=== PATIENT | female | born 2000 | race Caucasian/White ===

== ENCOUNTER → 2022-09-10 12:42 | Outpatient (CLI) | payer OTHER, SELFPAY ==
--- NOTE | ~2022-09-10 | US_ITS ---
EXAMINATION: US OB transvaginal DATE: 09/10/2022 13:16 INDICATION: Uncertain gestational dates. TECHNIQUE: Real-time transvaginal obstetric ultrasound. FINDINGS: No prior studies for comparison. The uterus measures 8.2 x 5.1 x 5.7 cm. There is an intrauterine gestational sac, with pole jing ntified. The crown rump length measures 0.99 cm, which correlates with a estimated gestational age o f 7 weeks 1 day. heart tones are identified measuring 139 BPM. There are bilateral ovarian cy sts, largest on the left measuring up to 2.5 cm.. IMPRESSION: 1. SL IUP with an EGA of 7 weeks, 1 days (EDC by current ultrasound of 04/28/2023). Reviewed, dictated and finalized at location B. MOTIVE OBSERVER IMPRESSION: 1. SL IUP with an EGA of 7 weeks, 1 days (EDC by current ultrasound of 04/28/20 23).
== END ==
PROVIDERS: PCP Obstetrics & Gynecology Gynecology; Visit Provider Obstetrics & Gynecology Gynecology
DX: Z36.87 Encounter for antenatal screening for uncertain dates (principal); Z3A.01 Less than 8 weeks gestation of pregnancy
CPT/HCPCS: 76817

== ENCOUNTER → 2022-11-28 08:09 | Outpatient (CLI) | payer OTHER, SELFPAY ==
--- NOTE | ~2022-11-28 | US_ITS ---
EXAMINATION: US OB /maternal detail DATE: 11/28/2022 08:55 INDICATION: survey TECHNIQUE: Multiple obstetric sonographic images performed. FINDINGS: Comparison to 09/10/2022 There is a single living fetus in breech presentation. The placenta is posterior without placenta pr evia. Placental margin to the cervix is 3.4 cm. Cervical length is 2.7 cm. Amniotic fluid volume is s ubjectively normal. cardiac activity and movement is noted with a heart rate of 136 beats per minute. The following anatomy was identified as normal: 4 chamber heart 3 vessel cord cord insertion kidneys urinary bladder stomach spine diaphragm ventricles cisterna magna cerebellum The following biometric data were obtained: BPD: 42mm corresponds to gestational age 18 weeks 4 days. Head circumference: 161 mm corresponds to gestational age 19 weeks 0 days. Abdominal circumference: 135 mm corresponds to gestational age 18 weeks 6 days. Femur length: 29 mm corresponds to gestational age 19 weeks 0 days. Head circumference to abdominal circumference ratio: 1.2 (normal range for expected gestational age i s 1.09-1.26). Estimated weight: 266 grams +/- 40 grams using Hadlock method 76.8%. IMPRESSION: 1: Single living intrauterine with an estimated gestational age of 18weeks 3days by initial ultrasound measurements, with an EDC of 04/28/2023 in breech presentation. 2. Normal survey. Reviewed, dictated and finalized at location B. IMPRESSION: 1: Single living intrauterine with an estimated gestational age of 18 weeks 3days by initial ultrasound measurements, with an EDC of 04/28/2023 in br eech presentation. 2. Normal survey.
== END ==
PROVIDERS: PCP Advanced Practice Midwife; Visit Provider Advanced Practice Midwife
DX: Z36.9 Encounter for antenatal screening, unspecified (principal); Z3A.18 18 weeks gestation of pregnancy
CPT/HCPCS: 76805

== ENCOUNTER 2022-12-21 09:09 | Emergency (ER) | payer OTHER, SELFPAY ==
--- NOTE | 2022-12-21 09:18 | ED.EYEPROB ---
HPI - Eye Problem General Chief complaint: Eye Problems Stated complaint: pink eye Time Seen by Provider: 12/21/22 09:51 Source: patient and RN notes reviewed Mode of arrival: ambulatory Limitations: no limitations History of Present Illness HPI Narrative: 22-year-old female who is 20 weeks presents concern for eye irritation, redness, burning, pain. She reports symptoms started 2 days ago, she went to another urgent care yesterday, they diagnosed her with pink eye, gave her tetracycline drops, she has been using them every 4 hours, yesterday and throughout the night. Reports the swelling and redness have worsened, she now has swelling under her eye. She reports her eye was crusted shut when she woke up this morning. She denies vision changes. Reports watery drainage MD chief complaint: eye redness Related Data Home Medications Medication Instructions Recorded Confirmed lansoprazole 30 mg capsule,delayed 30 mg PO DAILY 12/21/22 12/21/22 release Allergies Allergy/AdvReac Type Severity Reaction Status Date / Time No Known Allergies Allergy Verified 12/21/22 09:55 Review of Systems Review of Systems: CONSTITUTIONAL: Denies malaise, chills, sweats, or fever. EYES: Denies visual changes. Reports left pain, eye redness, irritation, discharge. ENT: Denies rhinorrhea, congestion, sinus pain, otalgia or sore throat. SKIN: Denies rash or itching. NEUROLOGIC: Denies numbness, weakness, or headache. PSYCHIATRIC: Denies anxiety or depression. All systems reviewed & are unremarkable except as noted in HPI and below PMFSH Comments At time of signature, agree with nursing past medical, surgical, social and family history. There is no relevant family history pertinent to the presenting complaint Exam Narrative: GENERAL: Well-appearing, well-nourished, and in no acute distress. HEAD: Normocephalic, atraumatic. EYES: PERRLA and EOMI. No nystagmus. Left sclera and conjunctivae injected with mild conjunctival edema, lower and upper lid edema and erythema, extending slightly below the lower lid; no tenderness to the upper or lower lid or surrounding the orbit. No corneal abrasion or foreign body noted upon Wood's lamp exam, see note. Right conjunctiva, sclera, upper and lower eyelid unremarkable. ENT: Nares clear, turbinates pink, no rhinorrhea or epistaxis. Mucous membranes moist. TM pearly bryant with sharp light reflex bilaterally; no tragal tenderness. NECK: Supple. CHEST: No respiratory distress. Speaks in full sentences. HEART: Regular rate and rhythm. SKIN: Warm, dry, no visible rash. NEURO: Alert and oriented x3. PSYCH: Normal mood and affect Course Course Emergency Course: Patient is aware of diagnosis, understands and agrees to treatment plan. Anticipatory guidance given. Patient agrees to follow-up as directed and is aware of reasons to seek care at the emergency department. Portions of this record may have been created with voice recognition software Level of Care: Express Care Visit Vital Signs Vital signs: Reviewed. Procedures Other Procedure Procedure 1: Other Procedure: Tetracaine 1 gtt instilled in left eye, fluorescein stain applied. No corneal abrasion noted upon harry lamp. Eye washed with NS. No foreign bodies or Viviana sign noted. MDM - Eye Problem MDM Narrative Medical decision making narrative: Consideration of the following conditions may be warranted for the presenting problem, they are not final diagnoses: Keratitis, bacterial conjunctivitis, allergic conjunctivitis, viral conjunctivitis, foreign body, blepharitis, chalazion, hordeolum, corneal abrasion, preseptal cellulitis, orbital cellulitis. No evidence of proptosis, ophthalmoplegia, vision loss, pain with eye movement. Exam findings show no acute concerns or changes; patient is non-toxic appearing and is in no distress. Patient is appropriate for outpatient treatment and follow-up. Differential Diagno
[2022-12-21 09:20] VITALS: BP 125/87; PULSE 105; RESP 16; TEMP 36.8; O2SAT 100
== END 2022-12-21 10:35 | disposition home or self-care (01) ==
PROVIDERS: Emergency Provider Nurse Practitioner
DX: O99.891 Other specified diseases and conditions complicating pregnancy (principal); Z3A.20 20 weeks gestation of pregnancy; H57.89 Other specified disorders of eye and adnexa; H02.846 Edema of left eye, unspecified eyelid
CPT/HCPCS: 99213; A9270; G0463

== ENCOUNTER → 2023-03-10 10:51 | Outpatient (CLI) | payer OTHER, SELFPAY ==
--- NOTE | ~2023-03-10 | US_ITS ---
EXAMINATION: US OB follow up DATE: 03/10/2023 11:13 INDICATION: Expected size greater than expected for estimated gestational age TECHNIQUE: Real-time ultrasound of the pelvis was performed. The interpreting radiologist was not pre sent for the study. COMPARISON: None. FINDINGS: There is a single living fetus in breech presentation. The placenta is posterior and not low-lying. The cephalad and caudal margins of the cervix are not clearly delineated precluding accurate assessme nt for length. heart rate is 141 beats per minute (bpm). The amniotic fluid index is 9.3 cm, w hich is normal (5th%-95%: 8.3-24.5 cm at 33 weeks estimated gestational age). The following biometric data were obtained: BPD: 8.5 cm -> 34 weeks 2 days Head circumference: 32.3 cm -> 36 weeks 4 days Abdominal circumference: 31.6 cm -> 35 weeks 3 days Femur length: 6.4 cm -> 33 weeks 0 days These measurements are concordant. Head circumference to abdominal circumference ratio: 1.02 (normal range 0.93-1.11). Estimated weight: 2521 g (+/-) 378 g or 5 lbs. 9 oz. (+/-) 13 oz. IMPRESSION: 1. Single living fetus in breech presentation with heart rate of 141 bpm. 2. Normal amniotic fluid index measuring 9.3 cm. 3. Estimated weight is 90th percentile by Hadlock criteria when 04/28/2023 is used as the estim ated date of delivery (MAYKEL). Please correlate with clinical information or earlier ultrasounds for mo st accurate MAYKEL. Reviewed, dictated and finalized at location A. IMPRESSION: 1. Single living fetus in breech presentation with heart rate of 141 bpm. 2. Normal amniotic fluid index measuring 9.3 cm. 3. Estimated weight is 90th percentile by Hadlock criteria when 3 is used as the estimated date of delivery (MAYKEL). Please correlate with clinic al information or earlier ultrasounds for most accurate MAYKEL.
== END ==
PROVIDERS: PCP Obstetrics & Gynecology Gynecology; Visit Provider Obstetrics & Gynecology Gynecology
DX: O36.63X0 Maternal care for excessive fetal growth, third trimester, not applicable or unspecified (principal); Z3A.00 Weeks of gestation of pregnancy not specified
CPT/HCPCS: 76816

== ENCOUNTER 2023-03-15 08:02 | Emergency (ER) | payer OTHER, SELFPAY ==
[2023-03-15 08:08] VITALS: BP 114/82; PULSE 105; RESP 16; TEMP 36.7; O2SAT 100
--- NOTE | 2023-03-15 08:17 | ED.URI ---
HPI - URI/Sore Throat General Chief Complaint: Upper Respiratory Infection Stated Complaint: Sore Throat/Ear Pain History of Present Illness HPI Narrative: patient presents with sore throat and ear pain. Patient denies any trouble swallowing no drooling. Patient states she gets strep to often and also complains of right ear pain. Patient is 34 weeks with no -related issues. No abdominal pain no pelvic pain no vaginal discharge no vaginal bleeding and no concern for STIs. Patient reports normal movement. Related Data Home Medications Medication Instructions Recorded Confirmed lansoprazole 30 mg capsule,delayed 30 mg PO DAILY 12/21/22 03/15/23 release aspirin 81 mg tablet,delayed 81 mg PO DAILY 03/15/23 03/15/23 release (Adult Low Dose Aspirin) cholecalciferol (vitamin D3) 125 125 mcg PO DAILY 03/15/23 03/15/23 mcg (5,000 unit) tablet (Vitamin D3) ferrous sulfate 324 mg (65 mg 324 mg PO DAILY 03/15/23 03/15/23 iron) tablet,delayed release vitamin-ferrous fumarate 1 tablet PO DAILY 03/15/23 03/15/23 28 mg iron-folic acid 800 mcg tablet ( Tablet) Allergies Allergy/AdvReac Type Severity Reaction Status Date / Time No Known Allergies Allergy Verified 03/15/23 08:18 Review of Systems Review of Systems: CONSTITUTIONAL: Denies chills, or sweats. Reports fever and generalized body aches EYES: Denies visual changes, redness, or discharge. ENT: Denies otalgia. Reports nasal congestion runny nose and sore throat CARDIOVASCULAR: Denies chest pain, palpitations, or edema. RESPIRATORY: Denies dyspnea. Reports occasional cough GASTROINTESTINAL: Denies abdominal pain, nausea, vomiting, or diarrhea. GENITOURINARY: Denies dysuria or hematuria. SKIN: Denies rash or itching. MUSCULOSKELETAL: Denies back pain, joint pain, or myalgia. Reports generalized body aches NEUROLOGIC: Denies headache, numbness, or weakness. PSYCHIATRIC: Denies anxiety or depression. PMFSH Comments At time of signature, agree with nursing past medical, surgical, social and family history. There is no relevant family history pertinent to the presenting complaint Exam Narrative: The patient is a well-developed, well-nourished in no acute distress. SKIN: Skin is warm and dry without erythema, swelling or exudate. There is good turgor. No tenting. HEAD: Atraumatic. Normocephalic. No temporal or scalp tenderness. EYES: Moist and bright. Sclera and conjunctivae normal. No discharge. PERRLA. Extraocular motions intact. Gross visual acuity intact. EARS: Pinna is normal shape and contour. Clear external auditory canals. TM pearly buenrostro with good cone of light, no erythema or suppuration. Bilateral cerumen noted no gross hearing deficit. NOSE: pink, moist mucosa with good air movement. Clear rhinorrhea without nasal flaring. Septum midline. Mouth: moist mucous membranes. THROAT; mild erythema noted to posterior oropharynx with moderate postnasal drainage. Without exudate or ulceration.. Uvula midline. Normal movement of soft palate. NECK: Supple and nontender with full range of motion without discomfort. No meningeal signs. LUNGS: Equal and bilateral breath sounds without wheezes, rales or rhonchi. CHEST: The chest wall is without retractions or use of accessory muscles. HEART: Has a regular rate and rhythm without murmur, gallops, click or rub. ABDOMEN: Soft, nontender with positive active bowel sounds. No rebound tenderness. EXTREMITIES: Without cyanosis, clubbing or edema. Equal 2+ distal pulses and 2 second capillary refill noted. NEUROLOGIC: alert, active, . The patient moves all extremities with normal muscle strength. Normal muscle tone is noted. Normal coordination is noted. NO focal neurological findings noted. Course Course Level of Care: Express Care Visit Vital Signs Vital signs: Vital Signs Temperature 36.7 C 03/15/23 08:08 Pulse Rate 105 H 03/15/23 08:08 Respiratory Rate
== END 2023-03-15 08:30 | disposition home or self-care (01) ==
PROVIDERS: Emergency Provider Nurse Practitioner Family
DX: O99.513 Diseases of the respiratory system complicating pregnancy, third trimester (principal); Z3A.34 34 weeks gestation of pregnancy; J02.0 Streptococcal pharyngitis
CPT/HCPCS: 87880; 99213; G0463

== ENCOUNTER 2023-04-25 10:46 | Outpatient (CLI) | payer OTHER, SELFPAY ==
[2023-04-25 11:14] LABS: Basophils Absolute Auto 0.1 K/mm3 (0.0-0.1); Basophils Percent Auto 0.3 % (0.2-1.2); Eosinophils Absolute Auto 0.1 K/mm3 (0-0.3); Eosinophils Percent Auto 0.6 % (0-4.4); Hematocrit 39.3 % (37.0-47.0); Hemoglobin 12.3 g/dL (12.0-15.0); Immature Granulocyte Absolute 0.26 K/mm3 (0.00-0.031); Immature Granulocyte Percent A 1.7 % (0-0.5); Lymphocytes Absolute Auto 2.67 K/mm3 (0.9-3.2); Lymphocytes Percent Auto 17.2 % (18.3-44.2); Mean Corpuscular HGB Conc 31.3 g/dl (32-36); Mean Corpuscular Hemoglobin 26.1 pg (26-34); Mean Corpuscular Volume 83.4 fl (80-100); Mean Platelet Volume 11.2 fl (7.4-10.4); Monocytes Percent Auto 6.5 % (2.6-8.5); Neutrophils Absolute Auto 11.4 K/mm3 (1.3-6.7); Neutrophils Percent Auto 73.7 % (45.5-73.1); Platelet Count Result 295 k/mm3 (150-375); Red Blood Count 4.71 M/mm3 (4.2-5.4); Red Cell Distribution Width 17.2 % (11.5-14.5); White Blood Count 15.5 K/mm3 (4.5-10.0)
[2023-04-26 21:58] LABS: Rapid Plasma Reagin Non-Reactive (NonReactive)
== END 2023-04-25 10:47 | disposition home or self-care (01) ==
LOC: ANHOBOP 10:49
PROVIDERS: Visit Provider Obstetrics & Gynecology Gynecology
DX: Z34.90 Encounter for supervision of normal pregnancy, unspecified, unspecified trimester (principal); Z3A.00 Weeks of gestation of pregnancy not specified
CPT/HCPCS: 36415; 85025; 86592; 86850; 86900; 86901

== ENCOUNTER 2023-04-26 11:46 | Outpatient (RCR) | payer OTHER, SELFPAY ==
[2023-04-26 13:00] VITALS: BP 118/81; PULSE 82
== END 2023-04-27 07:16 | disposition home or self-care (01) ==
LOC: ANHOBOP 11:46
PROVIDERS: Visit Provider Obstetrics & Gynecology Gynecology
DX: O26.893 Other specified pregnancy related conditions, third trimester (principal); R03.0 Elevated blood-pressure reading, without diagnosis of hypertension; Z3A.39 39 weeks gestation of pregnancy
CPT/HCPCS: 59025

== ENCOUNTER 2023-04-27 09:45 | Inpatient (IN) | payer OTHER, SELFPAY ==
[2023-04-27] VITALS (62 sets, daily range): BP systolic 94–134; BP diastolic 66–87; PULSE 75–105; RESP 14–18; TEMP 36.4–36.7; O2SAT 95–100; BMI 39.2
--- NOTE | 2023-04-27 07:37 | WPDHPUPDATE1 ---
History and Physical Update Update Date/Time: 04/27/23 07:37 History and Physical has been reviewed, including an updated exam of the patient. There are NO changes in the patient's condition. Risks, benefits, and alternatives have been discussed and questions answered. Patient agrees to proceed with procedure.
--- NOTE | 2023-04-27 07:37 | PM.IMHP ---
H&P: HPI History of Present Illness Date/Time: 04/27/23 07:37 Chief Complaint: Breech presentation Narrative: The patient is a 23-year-old 1 being admitted at 39 and 6/7 weeks secondary to breech presentation for primary section. Risks the delivery were reviewed patient declined external cephalic version. has been otherwise uncomplicated. labs A positive, rubella nonimmune, RPR negative, hepatitis-B surface antigen negative, HIV negative, group B strep negative. 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 Bedside u/s done and still breech. Review of Systems Review of Systems: not repeated day of surgery; patient states no changes in status [facility] Past Medical History Medical History (Updated 04/27/23 @ 07:42 by Patricia Leiva MD) GERD (gastroesophageal reflux disease) Family History Family History (Updated 04/03/23 @ 12:22 by Mariely Schulz RN) Father Hypertension Diabetes mellitus Mother Hypertension Rheumatoid arthritis Grandparent Ovarian cancer Grandparent Acute myocardial infarction Social History Social History Smoking status: Never smoker Second hand tobacco smoke exposure: No Substance use: never Lack of Transportation: No Lack of Food: Never True Current Housing: I Have Housing Concerned About Future Housing: No Difficulty Paying Gas/Electric Bills: No Difficulty Paying for Meds: No Currently Unemployed: No Education: Bachelor's Degree Difficulty w/ Childcare or Family Care: No Spiritual care concerns: No Meds Home Medications and Allergies Home Medications Medication Instructions Recorded Confirmed Type lansoprazole 30 mg capsule,delayed 30 mg PO DAILY 12/21/22 04/03/23 History release aspirin 81 mg tablet,delayed 81 mg PO DAILY 03/15/23 04/03/23 History release (Adult Low Dose Aspirin) cholecalciferol (vitamin D3) 125 125 mcg PO DAILY 03/15/23 04/03/23 History mcg (5,000 unit) tablet (Vitamin D3) ferrous sulfate 324 mg (65 mg 324 mg PO DAILY 03/15/23 04/03/23 History iron) tablet,delayed release vitamin-ferrous fumarate 1 tablet PO DAILY 03/15/23 04/03/23 History 28 mg iron-folic acid 800 mcg tablet ( Tablet) Allergies Allergy/AdvReac Type Severity Reaction Status Date / Time No Known Allergies Allergy Verified 04/03/23 12:19 Exam Const: General: healthy appearing, alert and obese (BMI pre 33.7; current weight 252 lb) Orientation/consciousness: patient oriented x3 Resp: Effort & Inspection: normal respiratory effort GI: GI Palp: Yes Soft to palpation, No Tenderness to palpation present (GI) and Yes Other GI palpation findings present (Fundal height of 40cm) : External Female Exam: normal external appearance Speculum Exam - Vagina: normal appearance of the vagina and normal vaginal discharge Speculum Exam - Cervix: normal appearance of the cervix Bimanual exam- vagina & uterus: consistency normal Bimanual Exam- Adnexa, other: normal adnexae and No adnexal tenderness Neuro: General: patient oriented x3 Assessment and Plan Assessment and plan (1) 39 weeks gestation of : Code(s): Z3A.39 - 39 weeks gestation of Status: Acute (2) Breech presentation: Code(s): O32.1XX0 - Maternal care for breech presentation, not applicable or unspecified Status: Acute Assessment and Plan: Plan is to proceed with primary section
[2023-04-27] MEDS: LACTATED RINGERS 1,000 ML 125 ML IV CONT ×2 (10:34→11:08)
[2023-04-27] MEDS: KETOROLAC 30 MG/ML VIAL (*BKC) 15 MG IV PUSH (12:43)
--- NOTE | 2023-04-27 12:49 | P.OP_ITS ---
Procedure Note - Detailed Date of Procedure 04/27/23 Pre-op Diagnosis Intrauterine at 39 and 6 7th weeks breech presentation Post-op Diagnosis Same Procedure Performed primary low-transverse section Surgeon Patricia Leiva MD Anesthesia Spinal Findings male in the snow breech presentation with 8 [id number] and 9 [id number] Apgars weighing 9lb 4oz normal-appearing tubes, ovaries, uterus Description of Procedure The patient was taken to the operating room and placed under anesthesia in the dorsal supine position with a leftward tilt. Once anesthesia was deemed adequate, she is prepped and draped in the usual sterile fashion. A Pfannenstiel skin incision was made with a scalpel and carried down to the underlying layer of fascia which was nicked in the midline. The incision was extended laterally using Dumont scissors. Bleeding vessels in the subcutaneous tissue are cauterize for hemostasis. Ochsner was used to tent the fascia which was then dissected off using sharp and blunt dissection. The rectus muscles were in the midline and the peritoneum tented and entered with Metzenbaum scissors. The incision was extended with blunt traction. The bladder blade is placed. The vesicouterine peritoneum was tented with a Peon and entered with Metzenbaum scissors. The incision was extended laterally and the bladder flap created digitally. The bladder blade is replaced. The lower uterine segment was incised in a transverse fashion with the scalpel and amniotic fluid clear is noted. The incision was extended laterally using blunt traction. The infant's hips are grasped and delivered as the foundation assistant applied fundal pressure. The infant was delivered to the scapula and then rotated and right arm delivered spontaneously. The infant was rotated and the left arm delivered while splinted. The infant was extended on the abdomen and the head delivered while guiding the vertex. The cord was clamped and cut and the infant handed to the awaiting OB nurse. The placenta is removed using manual traction after cord gases and cord blood were taken. The uterus is cleared of all clots and debris and exteriorized. The uterine incision was closed using 0 Monocryl in a running locked fashion and the same suture to imbricate. Good hemostasis is noted. The cul-de-sac is irrigated and the uterus returned to the abdomen. The gutters are irrigated. The incision was again inspected noted to be hemostatic. The fascia was closed using 0 Vicryl in a running fashion. Subcutaneous tissues are irrigated and noted to be hemostatic. Skin is closed using 4-0 Vicryl in a subcuticular fashion. Dermaflex was placed over the incision. Sponge, needle, and instrument counts are correct per the OR staff. Patient was taken to recovery room in stable condition. Estimated Blood Loss 275 Drains Yes ( Gabriel catheter) Packing No Pathology None sent Complications No immediate complications Condition Stable Disposition Floor
--- NOTE | 2023-04-27 12:53 | PM.OBDSVD ---
DS: Admitting Diagnosis Discharge Date 04/29/23 Admitting Diagnosis intrauterine at 39 and 6 7th weeks breech presentation DS: Discharge Diagnosis Discharge Diagnosis (1) Delivery by section using transverse incision of lower segment of uterus: Code(s): O82 - Encounter for delivery without indication Status: Acute OB - DS: Summary OB Procedures : Ultrasound OB Procedures Intrapartum: low cervical, transverse OB Procedures: : None Peripartum Data Delivery Method: Section Procedures: Procedures Operation Date: 04/27/23 12:00 Actual Procedure Side Surgeon p Section Patricia Leiva MD complications: none Status at Discharge Functional status at discharge: independent ambulation Overall status at discharge: patient is progressing back to baseline Time Spent with Patient Time attestation: Total time spent providing and/or coordinating discharge services: Discharge Plan Discharge Attending physician on discharge: Patricia Leiva Discharging Clinician: Patricia Leiva Anticipated Discharge Date/Time: 04/30/23 12:55 Patient Disposition: Home, Self-Care Activity: may shower, may drive after 2 weeks and pelvic rest Diet: regular Wound Care Instructions: incision open to air Patient Instructions: Antibiotic Form Stand Alone Forms: General Discharge Information Follow-up/Referrals: Patricia Leiva MD [Physician] - 1 Week ( and 6 week) Discharge Medications: New hydrocodone-acetaminophen 5-325 mg tablet 1 tablet PO Q4H PRN (Reason: pain) Qty: 15 0RF desogestrel-ethinyl estradiol [Isibloom] 0.15-0.03 mg tablet 1 tablet PO DAILY Qty: 84 1RF Rx Instructions: start in 3 weeks on Thursday Continued cholecalciferol (vitamin D3) [Vitamin D3] 125 mcg (5,000 unit) Tablet 125 mcg PO DAILY vit-iron fum-folic ac [ Tablet] 28 mg iron- 800 mcg Tablet 1 tablet PO DAILY ferrous sulfate 324 mg (65 mg iron) Tablet,Delayed Release (Dr/Ec) 324 mg PO DAILY lansoprazole 30 mg capsule,delayed release(DR/EC) 30 mg PO DAILY cetirizine 10 mg Tablet 10 mg PO DAILY Date of admission: 04/27/23 09:45 Primary Care Provider: PHYSICIAN NOT ON STAFF,NONSTAFF Admitting Provider: Patricia Leiva Attending physician on admission: Patricia Leiva Condition: Stable
[2023-04-27] MEDS: ceFAZolin 2 GM/D5W 50 ML 2 GM/50 ML BAG IVPB (13:09)
[2023-04-27] MEDS: OXYTOCIN 30 UNITS/NS 500 ML 30 UNITS/500 ML BAG 125 UNITS IV CONT (13:32)
--- NOTE | 2023-04-27 15:05 | OBPPTRN ---
Patient transferred to post room # 290 via stretcher accompanied by spouse and . PT introductions made and plan of care discussed per post op c section, pain management, bottle feeding, daily care activities. PT and suupport person present and recipients of instructions. No barriers to learning identified at this time. PT received such instructions via one to one discussion, mom baby care guide and demonstrations. Oriented to unit, room, information board, rooming in, admission packet and security measures. Patient verbalizes understanding.
[2023-04-27] MEDS: LIDOCAINE 5% PATCH 1 PATCH TRANSDERM (16:07)
[2023-04-27] MEDS: KETOROLAC 30 MG/ML VIAL (*BKC) IV PUSH (18:40)
[2023-04-27] MEDS: DEXTROSE 5%/0.45% SOD CHL 1,000 ML 125 ML IV CONT (18:40)
[2023-04-27] MEDS: HYDROcodone/acetaminophen (*CRX) 5-325 MG TABLET 1 TAB PO (22:50)
[2023-04-28] MEDS: HYDROcodone/acetaminophen (*CRX) 5-325 MG TABLET 1 TAB PO ×5 (02:57→21:24)
[2023-04-28 04:10] VITALS: BP 121/70; PULSE 95; RESP 18; TEMP 36.6; O2SAT 100
--- NOTE | 2023-04-28 07:56 | PM.OBPNVD ---
OB - PN: Subj Subjective Date/time seen: 04/28/23 07:56 Patient comments: no complaints and pain well controlled baby status: doing well OB - PN: Obj Data Labs 04/28/23 07:35 OB - PN A/P Plan day: 1 Plan: routine care Time Spent With Patient Time: Total time spent is greater than 50% in coordination of care (as documented) at patient's floor/unit and/or counseling patient: Exam Narrative: inc c/d/i : Bimanual exam- vagina & uterus: other (Uterus firm, nt @U)
[2023-04-28 07:58] LABS: Basophils Percent Auto 0.2 % (0.2-1.2); Eosinophils Absolute Auto 0.1 K/mm3 (0-0.3); Eosinophils Percent Auto 0.4 % (0-4.4); Hematocrit 35.9 % (37.0-47.0); Hemoglobin 11.1 g/dL (12.0-15.0); Immature Granulocyte Absolute 0.22 K/mm3 (0.00-0.031); Immature Granulocyte Percent A 1.3 % (0-0.5); Lymphocytes Absolute Auto 3.12 K/mm3 (0.9-3.2); Lymphocytes Percent Auto 18.7 % (18.3-44.2); Mean Corpuscular HGB Conc 30.9 g/dl (32-36); Mean Corpuscular Hemoglobin 25.8 pg (26-34); Mean Corpuscular Volume 83.3 fl (80-100); Mean Platelet Volume 11.3 fl (7.4-10.4); Monocytes Absolute Auto 1.4 K/mm3 (0.1-0.6); Monocytes Percent Auto 8.5 % (2.6-8.5); Neutrophils Absolute Auto 11.8 K/mm3 (1.3-6.7); Neutrophils Percent Auto 70.9 % (45.5-73.1); Platelet Count Result 266 k/mm3 (150-375); Red Blood Count 4.31 M/mm3 (4.2-5.4); Red Cell Distribution Width 17.3 % (11.5-14.5); White Blood Count 16.7 K/mm3 (4.5-10.0)
[2023-04-28] MEDS: IBUPROFEN 600 MG TABLET PO ×3 (08:20→21:23)
[2023-04-28] MEDS: DOCUSATE SODIUM 100 MG CAPSULE PO ×2 (08:20→16:12)
[2023-04-28] MEDS: MULTIVIT/MIN/PREN/FOL AC/IRON TABLET 1 TAB PO (08:20)
[2023-04-28 08:25] VITALS: BP 118/75; PULSE 93; RESP 16; TEMP 36.5; O2SAT 98
--- NOTE | 2023-04-28 09:02 | WPDANLDPN2 ---
Anes-Prog Note L&D Date/Time: 04/28/23 09:02 Comfortable throughout: section Neuraxial method: spinal Epidural/Spinal procedure site: clean & non-tender Neuro status: Neuro function grossly intact. Cardiovascular status: normal Respiratory status: normal Airway patency: baseline Mental status: baseline Post-Op hydration status: normal Vital Signs: Last Vital Signs Temp 36.6 C 04/28/23 04:10 Pulse 95 04/28/23 04:10 Resp 18 04/28/23 04:10 BP 121/70 04/28/23 04:10 Pulse Ox 100 04/28/23 04:10 O2 Del Method Room Air 04/28/23 04:10 Pain score (VAS): 3/10 I/O: Intake & Output 04/27/23 04/28/23 04/28/23 23:59 07:59 15:59 Intake Total 410 3000 Output Total 150 2650 Balance 260 350 Post-procedural complaints: none Patient feedback: Patient satisfied with anesthetic care.
--- NOTE | 2023-04-28 09:03 | WPDANLDNPN2 ---
Anes-Prog Note L&D-Neuraxial Date/Time: 04/28/23 09:03 Neuraxial medications: intrathecal PF morphine Opiod-related complaints: none Patient feedback: Patient satisfied with post-operative pain management.
[2023-04-28 12:57] VITALS: BP 110/76; PULSE 96; RESP 16; TEMP 36.5; O2SAT 98
[2023-04-28 20:00] VITALS: BP 113/76; PULSE 84; RESP 18; TEMP 36.3
[2023-04-28] MEDS: LIDOCAINE 5% PATCH 1 PATCH TRANSDERM (21:23)
[2023-04-29] MEDS: IBUPROFEN 600 MG TABLET PO (04:30)
[2023-04-29] MEDS: HYDROcodone/acetaminophen (*CRX) 5-325 MG TABLET 1 TAB PO ×2 (04:30→08:59)
--- NOTE | 2023-04-29 06:41 | PM.OBPNVD ---
OB - PN: Subj Subjective Date/time seen: 04/29/23 06:41 Patient comments: no complaints and pain well controlled baby status: doing well OB - PN: Obj Data Labs 04/28/23 07:35 Labs: Laboratory Results - last 24 hr 04/28/23 07:35 WBC 16.7 H RBC 4.31 Hgb 11.1 L Hct 35.9 L MCV 83.3 MCH 25.8 L MCHC 30.9 L RDW 17.3 H Plt Count 266 MPV 11.3 H Immature Gran % (Auto) 1.3 H Neut % (Auto) 70.9 Lymph % (Auto) 18.7 [place] % (Auto) 8.5 Eos % (Auto) 0.4 Baso % (Auto) 0.2 Lymph # (Auto) 3.12 [place] # (Auto) 1.4 H Eos # (Auto) 0.1 Baso # (Auto) 0.0 Abs Immat Gran (auto) 0.22 H Absolute Neuts (auto) 11.8 H Absolute Nucleated RBC 0.0 Nucleated RBC % 0.0 OB - PN A/P Plan day: 2 Plan: routine care, discharge home and other (plans [place] for bc) Time Spent With Patient Time: Total time spent is greater than 50% in coordination of care (as documented) at patient's floor/unit and/or counseling patient: Exam Narrative: inc c/d/i : Bimanual exam- vagina & uterus: other (Uterus firm, nt @U)
[2023-04-29 08:20] VITALS: BP 111/74; PULSE 88; RESP 16; TEMP 36.6; O2SAT 100
[2023-04-29] MEDS: MULTIVIT/MIN/PREN/FOL AC/IRON TABLET 1 TAB PO (08:59)
[2023-04-29] MEDS: DOCUSATE SODIUM 100 MG CAPSULE PO (08:59)
[2023-04-29] MEDS: MEASLES,MUMPS,RUBELLA VACCINE 0.5 ML VIAL SUB-Q (09:00)
[2023-05-01 11:19] VITALS: BP 126/85; PULSE 86; RESP 18; TEMP 37.5; O2SAT 99
== END 2023-04-29 13:10 | disposition home or self-care (01) | DRG 788 ==
LOC: ANHLDR 12:55 → ANHOB2 15:10
PROVIDERS: Admitting Provider Obstetrics & Gynecology Gynecology; Visit Provider Obstetrics & Gynecology Gynecology
PROC: 10D00Z1 Extraction of Products of Conception, Low, Open Approach (ICD-10-PCS; CPT 59514; principal; 2023-04-27 12:00)
DX: O32.1XX0 Maternal care for breech presentation, not applicable or unspecified (principal); Z37.0 Single live birth; Z3A.39 39 weeks gestation of pregnancy
CPT/HCPCS: 36415; 59025; 85025; 86592; 86850; 86900; 86901; 90710; A9270; J0690; J1885; J2274; J2371; J2405; J2590; J7120

== ENCOUNTER 2023-05-18 08:01 | Emergency (ER) | payer OTHER, SELFPAY ==
[2023-05-18 08:08] VITALS: BP 151/100; PULSE 96; RESP 20; TEMP 36.8; O2SAT 99
--- NOTE | 2023-05-18 08:10 | ED.URI ---
HPI - URI/Sore Throat General Chief Complaint: Upper Respiratory Infection Stated Complaint: sore throat History of Present Illness HPI Narrative: 23 y/o female presented for c/o sore throat, onset one week ago. She was seen the day after symptom onset at , tested negative for strep. Patient then contacted pcp who advised ibuprofen and Tylenol, and Rx steroid. Pt reports no improvement. Also doign saltwater gargles, lozenges, soft foods without relief. Now with left ear pain. Denies headache, nausea, vomiting, fevers or chills. Hx tonsillitis, looking for ENT. Last strep infection 02/2023. Pt is 3 weeks post , not . Related Data Home Medications Medication Instructions Recorded Confirmed lansoprazole 30 mg capsule,delayed 30 mg PO DAILY 12/21/22 05/18/23 release cholecalciferol (vitamin D3) 125 125 mcg PO DAILY 03/15/23 05/18/23 mcg (5,000 unit) tablet (Vitamin D3) Allergies Allergy/AdvReac Type Severity Reaction Status Date / Time No Known Allergies Allergy Verified 05/18/23 08:15 Review of Systems Review of Systems: CONSTITUTIONAL: Denies body aches, fever, chills, or sweats. EYES: Denies visual changes, redness, or discharge. ENT: Reports sore throat, left ear pain Denies rhinorrhea, congestion CARDIOVASCULAR: Denies chest pain, palpitations, or edema. RESPIRATORY: Denies dyspnea. GASTROINTESTINAL: Denies abdominal pain, nausea, vomiting, or diarrhea. SKIN: Denies rash, itching, or wounds. MUSCULOSKELETAL: Denies back pain, joint pain, or myalgia. NEUROLOGIC: Denies headache [facility] Past Medical History Medical History GERD (gastroesophageal reflux disease) Family History Family History Father Hypertension Diabetes mellitus Mother Hypertension Rheumatoid arthritis Grandparent Ovarian cancer Grandparent Acute myocardial infarction Social History Social History Smoking status: Never smoker Second hand tobacco smoke exposure: No Substance use: never Lack of Transportation: No Lack of Food: Never True Current Housing: I Have Housing Concerned About Future Housing: No Difficulty Paying Gas/Electric Bills: No Difficulty Paying for Meds: No Currently Unemployed: No Education: Bachelor's Degree Difficulty w/ Childcare or Family Care: No Spiritual care concerns: No Exam Narrative: GENERAL: mildly Ill-appearing, no acute distress. EYES: conjunctivae clear ENT: Mucous membranes moist. TM pearly bryant with normal light reflex bilaterally; no tragal tenderness. Oropharynx erythematous; left soft palate erythema and swelling Tonsils enlarged with exudate; Left 3+ right 2+. No drooling, no hoarseness, no trismus, uvula midline. No tripod positioning, hot potato voice NECK: Supple. No lymphadenopathy CHEST: Clear to auscultation, breath sounds equal. No respiratory distress, speaks in full sentences. HEART: Regular rate and rhythm. No murmur heard. SKIN: Warm, dry, no rash. NEURO: Alert and oriented x3. Course Course Emergency Course: Patient is aware of diagnosis, understands and agrees to treatment plan. Anticipatory guidance given. Patient agrees to follow-up as directed and is aware of reasons to seek care at the emergency department. Portions of this record may have been created with voice recognition software Level of Care: Express Care Visit Vital Signs Vital signs: Vital Signs Temperature 98.3 F 05/18/23 08:08 Pulse Rate 96 05/18/23 08:08 Respiratory Rate 20 05/18/23 08:08 Blood Pressure 151/100 H 05/18/23 08:08 Pulse Oximetry 99 05/18/23 08:08 Oxygen Delivery Room Air 05/18/23 08:08 Temperature 98.3 F 05/18/23 08:08 Pulse Rate 96 05/18/23 08:08 Respiratory Rate 20 05/18/23 08:08 Blood Pressure 151/100 H
== END 2023-05-18 08:36 | disposition short-term general hospital (02) ==
PROVIDERS: Emergency Provider Nurse Practitioner Family
DX: J02.9 Acute pharyngitis, unspecified (principal); K21.9 Gastro-esophageal reflux disease without esophagitis
CPT/HCPCS: 87081; 87880; 99213; G0463